=== PATIENT | female | born 1995 | race Caucasian/White ===

== ENCOUNTER 2018-08-10 20:36 | Emergency (ER) | payer OTHER | END 2018-08-10 21:11 | disposition left against medical advice (07) | LOC: ED 21:05 | DX: M79.662 Pain in left lower leg (principal); Z53.21 Procedure and treatment not carried out due to patient leaving prior to being seen by health care provider ==

== ENCOUNTER 2018-08-10 22:12 | Outpatient (CLI) | payer OTHER ==
[~2018-08-10] VITALS: Ht 165.1 cm; Wt 81.0 kg
== END 2018-08-11 00:09 | disposition home or self-care (01) ==
LOC: LDIP 22:12 → UNDOADMIN 22:12 → UNDODISIN 08-11 00:09 → LDOP 08-11 00:09
PROVIDERS: ATTEND Obstetrics & Gynecology
DX: Z34.92 Encounter for supervision of normal pregnancy, unspecified, second trimester (principal); Z3A.26 26 weeks gestation of pregnancy
CPT/HCPCS: 36415; 59025; 85460; 86900; G0378

== ENCOUNTER 2018-08-11 00:02 | Emergency (ER) | payer OTHER, MEDICAID ==
[~2018-08-11] VITALS: Ht 165.1 cm; Wt 80.0 kg
--- NOTE | 2018-08-11 00:05 | NUR ---
PT WAS SEEN AND EVALUATED IN LABOR AND DELIVERY FIRST, CLEARED AND BROUGHT TO ER
--- NOTE | 2018-08-11 00:22 | NUR ---
first contact with pt. pt had glf at home around 6pm today. no loc. pt c/o bilateral ankle pain. 26 weeks . pt's aox4. resps even and unlabored. bp/spo2 monitors in place. call light within reach.
[2018-08-11 00:27] VITALS: BP 107/67
--- NOTE | 2018-08-11 01:45 | NUR ---
EMT APPLIED SPLINT. PT TOLERATED WELL.
--- NOTE | 2018-08-11 02:32 | NUR ---
pt given dc instructions. pt's aox4. resps even and unlabored. pt wheeled to dc with pt's . no acute distress at dc.
== END 2018-08-11 02:33 | disposition home or self-care (01) ==
LOC: ED 00:54
DX: S92.351A Displaced fracture of fifth metatarsal bone, right foot, initial encounter for closed fracture (principal); S93.491A Sprain of other ligament of right ankle, initial encounter; Z87.891 Personal history of nicotine dependence; W01.0XXA Fall on same level from slipping, tripping and stumbling without subsequent striking against object, initial encounter; Y93.01 Activity, walking, marching and hiking; Y92.009 Unspecified place in unspecified non-institutional (private) residence as the place of occurrence of the external cause; Y99.8 Other external cause status
CPT/HCPCS: 29515; 99283

== ENCOUNTER 2018-11-03 09:31 | Inpatient (IN) | payer OTHER, MEDICAID ==
[~2018-11-03] VITALS: Ht 165.1 cm; Wt 91.0 kg
[2018-11-03 18:04] VITALS: BP 125/71
[2018-11-03] MEDS ORDERED: PREN1TAB60 PO (18:04)
[2018-11-03] MEDS ORDERED: OXYTOCIN 30U/ 0.9% NaCL 500ML 500 ML IV ONE (18:42)
[2018-11-03] MEDS ORDERED: D5%-LACTATED RINGERS 1,000 ML IV SCH (18:42)
[2018-11-03] MEDS ORDERED: CALCIUM CARBONATE 500 MG TAB.CHEW PO PRN (19:00)
[2018-11-03] MEDS ORDERED: SODIUM CHLORIDE FLUSH 10ML SYR IVF PRN (19:00)
[2018-11-03] MEDS ORDERED: TERBUTALINE 1 MG/ML, 1ML IVPush PRN (19:00)
[2018-11-03] MEDS ORDERED: MISOPROSTOL 25 MCG TABLET VG ONE (19:00)
[2018-11-03] MEDS ORDERED: FENTANYL PF 100 MCG/2ML IVPush PRN (19:00)
[2018-11-03] MEDS ORDERED: ONDANSETRON 2MG/ML, 2ML IVPush PRN (19:00)
[2018-11-03] MEDS ORDERED: FENTANYL PF 100 MCG/2ML IV PRN (19:00)
[2018-11-03 19:30] LABS: BASOPHILS # (AUTO) 0.03 x10^3/uL (0-0.1); BASOPHILS % (AUTO) 0 % (0-1); EOSINOPHILS # (AUTO) 0.07 x10^3/uL (0-0.4); EOSINOPHILS % (AUTO) 1 % (1-7); LYMPHOCYTES % (AUTO) 18 % (22-44); MD NO; MEAN CORPUSCULAR HEMOGLOBIN 28.7 pg (27.0-34.8); MEAN CORPUSCULAR HGB CONC 33.7 g/dL (32.4-35.8); MEAN CORPUSCULAR VOLUME 85.1 fL (80-100); MEAN PLATELET VOLUME 9.1 fL (7.4-10.4); MONOCYTES # (AUTO) 0.75 x10^3/uL (0.2-0.8); MONOCYTES % (AUTO) 8 % (2-9); NEUTROPHILS # (AUTO) 6.53 x10^3/uL (1.8-6.8); NEUTROPHILS % (AUTO) 73 % (42-75); PLATELET COUNT 235 x10^3/uL (130-400); RED BLOOD COUNT 4.21 x10^6/uL (3.82-5.3)
[2018-11-03] MEDS ORDERED: LACTATED RINGERS 500 ML IVBOLUS ONE (19:30)
[2018-11-03 19:37] LABS: AMPHETAMINE SCREEN, URINE Negative (Negative); BARBITURATE SCREEN, URINE Negative (Negative); BENZODIAZEPINE SCREEN, URINE Negative (Negative); CANNABINOID SCREEN, URINE Negative (Negative); COCAINE SCREEN, URINE Negative (Negative); METHADONE SCREEN, URINE Negative (Negative); OPIATE SCREEN, URINE Negative (Negative)
[2018-11-03] MEDS ORDERED: MISOPROSTOL 25 MCG TABLET ONE (19:45)
[2018-11-03] MEDS ORDERED: OXYTOCIN 30U/ 0.9% NaCL 500ML 500 ML ONE (19:45)
[2018-11-04] MEDS: LACTATED RINGERS 1,000 ML IV SCH ×4 (00:07→15:12)
[2018-11-04] MEDS: OXYTOCIN 30U/ 0.9% NaCL 500ML 500 ML IV PRN (00:08)
[2018-11-04] MEDS ORDERED: FENTANYL/BUPIV./NS/PF 250 ML EPIDCONT SCH (07:19)
[2018-11-04] MEDS ORDERED: FENTANYL PF 500 MCG, BUPIVACAINE/PF 0.5%, 30ML 62.5 ML in SODIUM CHLORIDE 0.9% 177.5 ML EPIDCONT SCH (08:00)
[2018-11-04] MEDS ORDERED: BUPIVACAINE/PF 0.25% ONE (13:48)
[2018-11-04] MEDS ORDERED: LIDOCAINE 1%, 20ML ONE ×2 (13:48→23:10)
[2018-11-04] MEDS ORDERED: FENTANYL/BUPIV./NS/PF 250 ML EPIDCONT ONE (13:48)
[2018-11-04] MEDS ORDERED: LACTATED RINGERS 1,000 ML IV SCH (14:34)
[2018-11-04] MEDS ORDERED: BUPIVACAINE/PF 0.5%, 30ML 62.5 ML, FENTANYL PF 500 MCG in SODIUM CHLORIDE 0.9% 177.5 ML EPIDCONT SCH (14:34)
[2018-11-04] MEDS ORDERED: NALOXONE 0.4 MG/ML, 1ML IVPush PRN (15:00)
[2018-11-04] MEDS ORDERED: LACTATED RINGERS 1,000 ML IVBOLUS PRN (15:00)
[2018-11-04] MEDS ORDERED: EPHEDRINE 50 MG/ML, 1ML IVPush PRN (15:00)
[2018-11-04] MEDS ORDERED: ONDANSETRON 2MG/ML, 2ML ONE (21:12)
[2018-11-04] MEDS ORDERED: MISOPROSTOL 200 MCG TABLET ONE (23:10)
[2018-11-04] MEDS ORDERED: NEWBORN KIT ONE (23:46)
[2018-11-05] MEDS ORDERED: OXYTOCIN 30U/ 0.9% NaCL 500ML 500 ML ONE (00:17)
[2018-11-05] MEDS: OXYTOCIN 30U/ 0.9% NaCL 500ML 500 ML IV PRN (01:59)
[2018-11-05 02:25] VITALS: BP 115/72
[2018-11-05] MEDS: OXYTOCIN 30U/ 0.9% NaCL 500ML 500 ML IV SCH ×3 (02:28→22:28)
[2018-11-05] MEDS ORDERED: ONDANSETRON 2MG/ML, 2ML IV PRN (02:30)
[2018-11-05] MEDS ORDERED: MISOPROSTOL 200 MCG TABLET PO PRN (02:30)
[2018-11-05] MEDS ORDERED: ACETAMINOPHEN 325 MG TABLET PO PRN (02:30)
[2018-11-05] MEDS ORDERED: METHYLERGONOVINE 0.2 MG/ML IM PRN (02:30)
[2018-11-05] MEDS ORDERED: IBUPROFEN 600 MG TABLET ONE (02:33)
[2018-11-05] MEDS: IBUPROFEN 600 MG TABLET PO PRN ×4 (02:36→23:11)
[2018-11-05] MEDS: OXYcodone/APAP 5/325MG TABLET PO PRN ×5 (06:28→18:59)
[2018-11-05 07:20] VITALS: BP 110/72
[2018-11-05] MEDS: DOCUSATE 100 MG CAPSULE PO PRN (07:25)
[2018-11-05] MEDS: PRENATAL VIT/IRON/FA 1 EACH TABLET PO SCH (07:25)
[2018-11-05 07:57] LABS: BASOPHILS # (AUTO) 0.02 x10^3/uL (0-0.1); BASOPHILS % (AUTO) 0 % (0-1); EOSINOPHILS # (AUTO) 0.02 x10^3/uL (0-0.4); EOSINOPHILS % (AUTO) 0 % (1-7); HEMOGRAM NOTE RECHECKED; LYMPHOCYTES # (AUTO) 1.01 x10^3/uL (1-3.4); LYMPHOCYTES % (AUTO) 7 % (22-44); MD NO; MEAN CORPUSCULAR HEMOGLOBIN 27.8 pg (27.0-34.8); MEAN CORPUSCULAR HGB CONC 32.6 g/dL (32.4-35.8); MEAN CORPUSCULAR VOLUME 85.3 fL (80-100); MEAN PLATELET VOLUME 8.9 fL (7.4-10.4); MONOCYTES # (AUTO) 0.81 x10^3/uL (0.2-0.8); MONOCYTES % (AUTO) 6 % (2-9); NEUTROPHILS # (AUTO) 12.19 x10^3/uL (1.8-6.8); NEUTROPHILS % (AUTO) 87 % (42-75); PLATELET COUNT 197 x10^3/uL (130-400); RED CELL DISTRIBUTION WIDTH 12.9 % (9.6-15.2)
[2018-11-05 12:00] VITALS: BP 111/73
[2018-11-05 16:18] VITALS: BP 108/62
[2018-11-05 20:00] VITALS: BP 122/78
[2018-11-06] MEDS: OXYcodone/APAP 5/325MG TABLET PO PRN ×3 (02:28→11:19)
[2018-11-06] MEDS: IBUPROFEN 600 MG TABLET PO PRN ×2 (06:38→12:59)
[2018-11-06 07:10] VITALS: BP 124/82
[2018-11-06] MEDS: PRENATAL VIT/IRON/FA 1 EACH TABLET PO SCH (07:19)
[2018-11-06] MEDS: DOCUSATE 100 MG CAPSULE PO PRN (07:19)
[2018-11-06] MEDS: OXYTOCIN 30U/ 0.9% NaCL 500ML 500 ML IV SCH (08:28)
[2018-11-06] MEDS ORDERED: DIPH,PERTUSS(ACELL),TET VAC/PF NC IM-VACC ONE (13:00)
== END 2018-11-06 13:32 | disposition home or self-care (01) | DRG 807 ==
LOC: LDIP 17:55 → 2NW 11-05 02:10
PROVIDERS: ADMIT Obstetrics & Gynecology; ATTEND Obstetrics & Gynecology
PROC: 10907ZC Drainage of Amniotic Fluid, Therapeutic from Products of Conception, Via Natural or Artificial Opening (ICD-10-PCS; principal; 2018-11-05)
PROC: 10E0XZZ Delivery of Products of Conception, External Approach (ICD-10-PCS; 2018-11-05)
PROC: 3E033VJ Introduction of Other Hormone into Peripheral Vein, Percutaneous Approach (ICD-10-PCS; 2018-11-05)
PROC: 3E0R3BZ Introduction of Anesthetic Agent into Spinal Canal, Percutaneous Approach (ICD-10-PCS; 2018-11-05)
PROC: 00HU33Z Insertion of Infusion Device into Spinal Canal, Percutaneous Approach (ICD-10-PCS; 2018-11-05)
PROC: 0HQ9XZZ Repair Perineum Skin, External Approach (ICD-10-PCS; 2018-11-05)
DX: O70.0 First degree perineal laceration during delivery (principal); Z37.0 Single live birth; Z3A.39 39 weeks gestation of pregnancy
CPT/HCPCS: 36415; J3490; 80307; 85025; 86850; 86900; 90715; G0378; J2405; J2590; J3010; J7120

== ENCOUNTER 2018-11-07 14:36 | Emergency (ER) | payer OTHER, MEDICAID ==
[~2018-11-07] VITALS: Ht 165.1 cm; Wt 88.7 kg
[~2018-11-07 14:36] MED LIST: PREN1TAB60 PO
[2018-11-07] MEDS ORDERED: SODIUM CHLORIDE 0.9% 1,000 ML IV ONE (15:02)
--- NOTE | 2018-11-07 15:05 | NUR ---
PT AMBULATORY TO ED ROOM 3 W/ STEADY GAIT, CARRYING IN CAR SEAT, ACCOMPANIED BY [id number]. 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 C/O HERNANDEZ SINCE EPIDURAL WORE OFF, SPINAL PAIN (BASE OF NECK, SACRAL AREA). EPIDURAL DONE: 11/04/18 AT APPROX 1530. +NAUSEA, DENIES VOMITING. IBUPROFEN (LAST DOSE: 0830 TODAY), TYLENOL (LAST DOSE: 1200 TODAY). LUNCH AT 1130. REPORTS GOOD WATER INTAKE. DENIES PROBLEM . SMOOTH LABOR.
[2018-11-07] MEDS ORDERED: SODIUM CHLORIDE FLUSH 10ML SYR IVF ONE (15:30)
--- NOTE | 2018-11-07 16:30 | NUR ---
AMBULATORY TO & FROM [facility] W/OUT INCIDENT, GAIT STEADY. DENIES DIZZINESS/LIGHTHEADEDNESS W/ POSITION CHANGES.
--- NOTE | 2018-11-07 16:34 | NUR ---
DR HINES (ANESTHESIA) BS FOR TX. VO: D5LR 1 LITER POST-PROCEDURE, THEN DC.
--- NOTE | 2018-11-07 16:46 | NUR ---
BASSEM RN: RN ASSISTED ANESTHESIOLOGIST WITH BLOOD PATCH.
--- NOTE | 2018-11-07 16:58 | NUR ---
D5LR 1 LITER HUNG [address] VO DR HINES. IV SITE PATENT. PT SUPINE, C/O INTERMITTENT BACK PAIN - POSITION DEPENDENT. PT'S MOM-IN-LAW AND INFANT IN ROOM. BLOOD PATCH CONSENT FORM ON COUNTER - SIGNED BY PT & DR HINES - FORM WILL BE ADDED TO PT CHART.
[2018-11-07 17:02] VITALS: BP 125/69
--- NOTE | 2018-11-07 17:40 | NUR ---
HOB ELEVATED TO LOW FOWLERS. NO C/O PAIN.
--- NOTE | 2018-11-07 17:45 | NUR ---
PT REPORT TO MARINA MACHUCA RN. PT CARE TRANSFERRED.
--- NOTE | 2018-11-07 17:57 | NUR ---
FLOAT RN: RN HELPED PT AMBULATE TO RESTROOM. STEADY GAIT.
--- NOTE | 2018-11-07 18:16 | NUR ---
BASSEM RN: PT DISCHARGED HOME IN A STABLE CONDITION. PIV WAS REMOVED WITH TIP INTACT. DC INSTRUCTIONS WERE DISCUSSED WITH PT. PT VERBALIZED UNDERSTANDING. NO FURTHER QUESTIONS OR CONCERNS WERE EXPRESSED AT THAT TIME. RN WHEELED PT OUT TO FAMILYS CAR.
== END 2018-11-07 18:19 | disposition home or self-care (01) ==
LOC: ED 15:38
DX: G97.1 Other reaction to spinal and lumbar puncture (principal)
CPT/HCPCS: 99283; J7030